=== PATIENT | female | born 1975 | race Caucasian/White ===

== ENCOUNTER → 2019-03-25 | Outpatient (CLI) | payer OTHER ==
[2016-12-07 13:55] VITALS: BP 121/66
[~2019-03-25] MED LIST: HYDR-3165 PO
--- NOTE | 2019-03-28 09:18 | RAD ---
DATE: 03/25/2019 EXAM: MAMMO JOAQUÍN ROBERT BILAT HISTORY: Breast tenderness COMPARISON: 12/05/2016 This study was interpreted with the benefit of Computerized Aided Detection (CAD). Breast Density: SCATTERED The breast parenchyma shows scattered fibroglandular densities. Breast parenchyma level B. FINDINGS: 2-D and 3-D tomosynthesis imaging was performed in CC and MLO projections. There is an unchanged small nodule in the anterolateral aspect of the right breast, probably a benign lymph node. No new or enlarging breast densities are seen. Benign type calcifications are present. No suspicious microcalcifications have developed. IMPRESSION: Stable mammograms without evidence of malignancy. BI-RADS CATEGORY: 2 BENIGN FINDING(S) RECOMMENDED FOLLOW-UP: 12M 12 MONTH FOLLOW-UP PQRS compliance statement: Patient information was entered into a reminder system with a target due date for the next mammogram. Mammography is a sensitive method for finding small breast cancers, but it does not detect them all and is not a substitute for careful clinical examination. A negative mammogram does not negate a clinically suspicious finding and should not result in delay in biopsying a clinically suspicious abnormality. "Our facility is accredited by the [employer] Mammography Program."
== END | disposition home or self-care (01) ==
LOC: MAMMO 13:57
PROVIDERS: ATTEND Nurse Practitioner Family
DX: N63.10 Unspecified lump in the right breast, unspecified quadrant (principal); N64.89 Other specified disorders of breast
CPT/HCPCS: 77066; G0279; 77062

== ENCOUNTER 2020-10-12 17:29 | Emergency (ER) | payer OTHER ==
[~2020-10-12] VITALS: Ht 154.9 cm; Wt 67.3 kg
[2020-10-12 18:46] VITALS: BP 153/89
--- NOTE | 2020-10-12 19:04 | PHYS DOC ---
Past History Past Medical History: No Pertinent History Past Surgical History: Cholecystectomy, Hysterectomy, Other Alcohol Use: None Drug Use: None General Adult EDM: Chief Complaint: ANIMAL BITE HPI: HPI: ".. My friend was visiting with her two dogs.. on .. ..and we took them out for a walk .. with my two dogs.. Well they got all tangled up together with their leashes.. and all started fighting.. Her dog.. Copehangen.. a [place]er Wasserman.. got a hold of the back of my dog..Boresce's neck...and was slinging him around... I went to break them up... and Pomaria.. bit down on my Lt. hand.. .I had to pry his mouth open to get loose.. Well there was this army medic.. there.. and he washed out all my wounds.. and dressed it up.. . Since all the dogs had their shots.. did not think much about it..and I was already on Augmentin for a sinus infection... Well now my hand is more sore.. and it is getting red.. like an infection...:" Patient is a 45 year old female who presents with above history and complaints of dog bite to her left hand 3 days ago. Patient reportedly up-to-date with her tetanus. Dog is reportedly up-to-date with her vaccinations. Dogs have not had any changes in their health conditions since it bit her. Patient was on Augmentin 875 twice a day prior to the dog bite which she continued for the last 3 days. Patient has multiple puncture wounds on her left hand. There is surrounding erythema at the base of the thumb and left wrist. There does appear to be some streaking at wrist and to mid forearm. Slight numbness to skin at base of Lt. thumb. There is ecchymosis and swelling. Range of motion and sensation still intact distally. Pt patient does complain of discomfort with range of motion. . No axillary adenopathy. Distal capillary refill in fingers is equal to right hand. Patient denies any history of immunosuppression. No recent travel. No specific ill contacts. Patient is left-hand dominant. Pt. follows with Dr. Horn. Review of Systems: Review of Systems: Constitutional: Denies fever or chills Eyes: Denies change in visual acuity HENT: History of recent diagnosis of sinusitis and nasal congestion -on Augmentin 875 twice daily t Respiratory: Denies cough or shortness of breath Cardiovascular: Denies chest pain or edema GI: Denies abdominal pain, nausea, vomiting, bloody stools or diarrhea : Denies dysuria Musculoskeletal: Denies back pain or joint pain Integument: Complains of dog bite to left hand and increased pain with swelling and erythema Neurologic: Denies headache, focal weakness or sensory changes Endocrine: Denies polyuria or polydipsia Lymphatic: Denies swollen glands Psychiatric: Denies depression or anxiety Family History: Family History: Noncontributory to presentation Current Medications: Current Meds: Augmentin 875 twice daily Allergies: Allergies: Allergies Coded Allergies Type Severity Reaction Last Updated Verified No Known Drug Allergies 01/02/16 No Physical Exam: PE: Constitutional: Moderate acute distress, non-toxic appearance. [] HENT: Normocephalic, atraumatic, bilateral external ears normal, oropharynx moist, no oral exudates, nose swollen turbinates, clear rhinorrhea Eyes: PERRLA, EOMI, conjunctiva normal, no discharge. [] Neck: Normal range of motion, no tenderness, supple, no stridor. [] Cardiovascular:Heart rate regular rhythm, no murmur [] Lungs & Thorax: Bilateral breath sounds equal apex with scattered wheezes on auscultation [] Abdomen: Bowel sounds normal, soft, no tenderness, no masses, no pulsatile masses. Old surgery scars Skin: Warm, dry, no erythema, no rash. [] Back: No tenderness, no CVA tenderness. [] Extremities: No tenderness, no cyanosis, no clubbing, ROM intact, no edema. Except findings in left hand as per HPI Neurologic: Alert and oriented X 3, normal motor function, normal sensory function, no focal deficits noted. [] Psychologic: Affect anxious, judgement normal, mood normal. [] Current Patient Data: Vital Signs: Vital Signs Date Time Temp Pulse Resp B/P (MAP) Pulse Ox O2 Delivery O2 Flow Rate FiO2 10/12/20 18:46 98.0 98 16 153/89 (110) 98 Room Air EKG: EKG: [] Radiology/Procedures: Radiology/Procedures: [][address] [address] IMAGING REPORT Signed PATIENT: YAMILETH DILLARD ACCOUNT: [id number] : 1975 LOCATION: ER AGE: 45 SEX: F EXAM STATUS: REG ER ORD. PHYSICIAN: CONCHIS VAZQUEZ MD REASON: dog bite PROCEDURE: HAND LEFT 3V EXAM: LEFT HAND 3 VIEWS. HISTORY: Dog bite. COMPARISON: None. FINDINGS: There is no fracture or radiopaque foreign body. Alignment is maintained. Joint spaces are maintained. IMPRESSION: 1. No fracture or radiopaque foreign body. Electronically signed by: Kunal Vale MD (10/12/2020 8:17 PM) [facility] DICTATED AND SIGNED BY: JAMEY VALE MD DATE: 10/12/202016 CC: CONCHIS VAZQUEZ MD; TADEO HORN DO ~MTH0 0 Heart Score: Risk Factors: Risk Factors: DM, Current or recent (<one month) smoker, HTN, HLP, family history of CAD, obesity. Risk Scores: Score 0 - 3: 2.5% MACE over next 6 weeks - Discharge Home Score 4 - 6: 20.3% MACE over next 6 weeks - Admit for Clinical Observation Score 7 - 10: 72.7% MACE over next 6 weeks - Early Invasive Strategies Course & Med Decision Making: Course & Med Decision Making Pertinent Labs and Imaging studies reviewed. (See chart for details) Patient received goals Rocephin IM and started on Bactrim DS. Patient to soak hand in Epson salt water 4 times a day. Patient massage Polysporin 4 times a day to areas of dog bite. Patient to start Bactrim DS twice a day and continue Augmentin twice daily. Monitor closely for increased erythema, pain, drainage and swelling. Patient warned this is a very high risk wound injury. Dog must be confined for 10 days to monitor for rabies. Follow-up with primary care. If no improvement will need to see hand specialist and possibly surgical exploration of wounds. May need hospital admission with IV antibiotics. P atient take Tylenol and ibuprofen for pain. May take Vicoprofen up to 4 times a day for marked pain. Impression: 1. Dog Bite Lt. Hand 2. Cellulitis [] Dragon Disclaimer: Dragon Disclaimer: This electronic medical record was generated, in whole or in part, using a voice recognition dictation system. Departure Departure: Referrals: TADEO HORN DO (PCP) Scripts Fluconazole (DIFLUCAN) 100 Mg Tablet 100 MG PO DAILY for post antibiotic, #3 TAB Prov: CONCHIS VAZQUEZ MD 10/12/20 Amoxicillin/Potassium Clav (AUGMENTIN 875-125 TABLET) 1 Each Tablet 1 TAB PO BID for dog bite for 10 Days, #20 TAB 0 Refills Prov: CONCHIS VAZQUEZ MD 10/12/20 Hydrocodone/Ibuprofen (HYDROCODONE-IBUPROFEN 7.5-200 ) 1 Each Tablet 1 TAB PO PRN Q6HRS PRN for PAIN, #30 TAB 0 Refills Prov: CONCHIS VAZQUEZ MD 10/12/20 Sulfamethoxazole/Trimethoprim (BACTRIM DS TABLET) 1 Each Tablet 1 TAB PO BID for dog bite for 10 Days, #20 TAB 0 Refills Prov: CONCHIS VAZQUEZ MD 10/12/20 Dragon Disclaimer This chart was dictated in whole or in part using Voice Recognition software in a busy, high-work load, and often noisy Emergency Department environment. It may contain unintended and wholly unrecognized errors or omissions. Dragon Disclaimer This chart was dictated in whole or in part using Voice Recognition software in a busy, high-work load, and often noisy Emergency Department environment. It may contain unintended and wholly unrecognized errors or omissions. CONCHIS VAZQUEZ MD Oct 12, 2020 19:04
[2020-10-12] MEDS ORDERED: HYDR-1179 PO (19:28)
[2020-10-12] MEDS ORDERED: SULF1TAB24 PO (19:28)
[2020-10-12] MEDS ORDERED: FLUC100T7 PO (19:28)
[2020-10-12] MEDS ORDERED: AMOX1TAB61 PO (19:28)
[2020-10-12] MEDS ORDERED: SMZ/TMP 800/160MG TABLET. PO ONE (19:30)
[2020-10-12] MEDS ORDERED: cefTRIAXone IM 1 GM VIAL IM ONE (19:30)
[2020-10-12] MEDS ORDERED: KETOROLAC 60 MG/2 ML VIAL. IM ONE (19:30)
--- NOTE | 2020-10-12 20:20 | RAD ---
EXAM: LEFT HAND 3 VIEWS. HISTORY: Dog bite. COMPARISON: None. FINDINGS: There is no fracture or radiopaque foreign body. Alignment is maintained. Joint spaces are maintained. IMPRESSION: 1. No fracture or radiopaque foreign body. Electronically signed by: Kunal Vale MD (10/12/2020 8:17 PM) [facility]
== END 2020-10-12 20:29 | disposition home or self-care (01) ==
LOC: ER 17:29
DX: S61.432A Puncture wound without foreign body of left hand, initial encounter (principal); L03.114 Cellulitis of left upper limb; R20.2 Paresthesia of skin; L53.9 Erythematous condition, unspecified; Z90.710 Acquired absence of both cervix and uterus; Z90.49 Acquired absence of other specified parts of digestive tract; W54.0XXA Bitten by dog, initial encounter; Y93.89 Activity, other specified; Y92.89 Other specified places as the place of occurrence of the external cause; Y99.8 Other external cause status
CPT/HCPCS: 73130; 96372; 99284; J0696; J1885